=== PATIENT | female | born 1985 ===

== ENCOUNTER 2017-09-27 17:49 | Emergency (ER) | payer MEDICAID, OTHER ==
[2017-09-27 17:49] VITALS: BMI 27.6
--- NOTE | 2017-09-27 20:06 | ED PDOC ---
HPI: Psych/Substance Abuse Time Seen by Provider: 09/27/17 19:45 Chief Complaint (Nursing): Psychiatric Evaluation Chief Complaint (Provider): Psychiatric Evaluation History Per: Patient History/Exam Limitations: no limitations Onset/Duration Of Symptoms: Days (x1) Current Symptoms Are (Timing): Still Present Additional Complaint(s): 32 y/o female with a pmhx of asthma, migraines, and diabetes, who presents to the ED for psychiatric evaluation. Patient was brought to ED with family over concerning behavior. Patient states she was just feeling a bit depressed because her father just . Patient admits to taking medication and drinking wine. Patient has a injury to her right leg, which she states was caused by HPD. Denies any other injury. Past Medical History Reviewed: Historical Data, Nursing Documentation, Vital Signs Vital Signs: Last Vital Signs Temp 998.3 F H 09/27/17 17:51 Pulse 111 H 09/27/17 17:51 Resp 16 09/27/17 17:51 BP 155/80 H 09/27/17 17:51 Pulse Ox 100 09/27/17 17:51 - Medical History PMH: Anxiety, Depression, Gastrointestinal Ulcer (h/o endoscopy), Migraine Denies: Chronic Kidney Disease - Surgical History Surgical History: Endoscopy - Family History Family History: States: Unknown Family Hx - Immunization History Hx Tetanus Toxoid Vaccination: No Hx Influenza Vaccination: No Hx Pneumococcal Vaccination: No - Home Medications Home Medications: Ambulatory Orders Medication Instructions Recorded Alprazolam [Xanax] 0.5 mg PO HS 11/04/15 Omeprazole 20 mg PO DAILY #30 tablet. 01/05/17 - Allergies Allergies/Adverse Reactions: Allergies Allergy/AdvReac Type Severity Reaction Status Date / Time No Known Allergies Allergy Verified 01/04/17 16:13 Review of Systems ROS Statement: Except As Marked, All Systems Reviewed And Found Negative Musculoskeletal: Positive for: Leg Pain Physical Exam - Reviewed Nursing Documentation Reviewed: Yes Vital Signs Reviewed: Yes - Physical Exam Appears: Positive for: Non-toxic, No Acute Distress Cardiovascular/Chest: Positive for: Regular Rate, Rhythm, Chest Non Tender. Negative for: Murmur Respiratory: Positive for: Wheezing (right lung no wheezing, wheezing at left upper and lower lung) Gastrointestinal/Abdominal: Positive for: Normal Exam, Soft. Negative for: Tenderness, Guarding, Rebound Neurologic/Psych: Positive for: Alert, Oriented - Laboratory Results Result Diagrams: 09/27/17 21:25 09/27/17 21:25 - ECG O2 Sat by Pulse Oximetry: 100 (RA) Pulse Ox Interpretation: Normal Medical Decision Making Medical Decision Makin:00 Impression: Psychiatric Evaluation Plan: -Labs -Crisis evaluation -Reevaluation Scribe Attestation: Documented by Jose Tinsley, acting as a scribe for Ramsey Barber PA-C. Provider Scribe Attestation: All medical record entries made by the Scribe were at my direction and personally dictated by me. I have reviewed the chart and agree that the record accurately reflects my personal performance of the history, physical exam, medical decision making, and the department course for this patient. I have also personally directed, reviewed, and agree with the discharge instructions and disposition. Disposition - Clinical Impression Clinical Impression: Grief reaction, Alcohol-induced mood disorder - Patient ED Disposition Is Patient to be Admitted: No - Disposition Disposition: Routine/Home Disposition Time: 20:25 Condition: STABLE Instructions: Dealing With , Adult Forms: [employer] ([place]ian)
[2017-09-27 21:47] LABS: BASO % 0.4 % (0.0-2.0); EOS # 0.1 K/uL (0.0-0.7); EOS % 1.5 % (0.0-4.0); HEMOGLOBIN 15.1 g/dL (12.0-16.0); LYMPH # 2.4 K/uL (1.0-4.3); LYMPH % 29.7 % (20.0-40.0); MEAN CELL VOLUME 79.6 fl (81.0-99.0); MEAN CORPUSCULAR HEMOGLOBIN 25.7 pg (27.0-31.0); MEAN CORPUSCULAR HGB CONC 32.2 g/dL (33.0-37.0); MEAN PLATELET VOLUME 9.9 fl (7.2-11.7); MONO # 0.7 K/uL (0.0-0.8); MONO % 8.8 % (0.0-10.0); NEUT # 4.8 K/uL (1.8-7.0); NEUT % 59.6 % (50.0-75.0); NRBC % 0.2 % (0.0-0.0); RBC 5.89 Mil/uL (3.80-5.20); RED CELL DISTRIBUTION WIDTH 15.3 % (11.5-14.5)
[2017-09-27 21:50] LABS: SQUAMOUS EPITHIAL 3 /hpf (0-5); URINE AMORPHOUS SEDIMENT RARE /ul (<OCC); URINE BILIRUBIN NEGATIVE (NEGATIVE); URINE BLOOD LARGE (NEGATIVE); URINE CLARITY CLOUDY (Clear); URINE COLOR YELLOW (YELLOW); URINE GLUCOSE (UA) NEG (Normal); URINE LEUKOCYTE ESTERASE NEG Leu/uL (Negative); URINE PROTEIN 30 mg/dL (NEGATIVE); URINE UROBILINOGEN 0.2-1.0 mg/dL (0.2-1.0)
[2017-09-27 21:51] LABS: ACETAMINOPHEN < 10.0 ug/ml (10.0-30.0); SALICYLATE < 1.0 mg/dl
[2017-09-27 21:54] LABS: BLOOD UREA NITROGEN 9 mg/dl (7-17); CALCIUM 9.5 mg/dL (8.4-10.2); GFR AFRICAN-AMERICAN > 60; GFR NON-AFRICAN AMERICAN > 60
[2017-09-27 22:04] LABS: BARBITURATES, UR NEGATIVE (NEGATIVE); BENZODIAZEPINES, UR POSITIVE (NEGATIVE); OPIATES, UR NEGATIVE (NEGATIVE); PHENCYCLIDINE, UR NEGATIVE (NEGATIVE)
[2017-09-28 00:57] VITALS: BP 103/70; PULSE 81; RESP 18; TEMP 98.7
[2017-09-28 11:55] VITALS: O2SAT 100
== END 2017-09-28 00:57 | disposition home or self-care (01) ==
LOC: H.ER 17:49
DX: F10.94 Alcohol use, unspecified with alcohol-induced mood disorder (principal); F43.21 Adjustment disorder with depressed mood; E11.9 Type 2 diabetes mellitus without complications; F32.9 Major depressive disorder, single episode, unspecified; J45.909 Unspecified asthma, uncomplicated